=== PATIENT | male | born 1980 | race Caucasian/White ===

== ENCOUNTER 2021-03-15 11:23 | Emergency (ER) | payer MEDICAID ==
[~2021-03-15] VITALS: Ht 167.6 cm; Wt 87.5 kg
[2021-03-15 12:08] VITALS: BP 155/91
== END 2021-03-15 13:20 | disposition home or self-care (01) ==
LOC: ER 11:23
DX: J03.90 Acute tonsillitis, unspecified (principal); Z88.0 Allergy status to penicillin